=== PATIENT | female | born 1995 | race Caucasian/White ===

== ENCOUNTER → 2024-03-15 06:17 | Day surgery (SDC) | payer BC, SELFPAY | LOC: GI 06:17 | PROVIDERS: ATTENDING PHYSICIAN Internal Medicine Gastroenterology; FAMILY PHYSICIAN Internal Medicine | DX: R19.4 Change in bowel habit (principal); K64.8 Other hemorrhoids; R10.13 Epigastric pain; K31.89 Other diseases of stomach and duodenum; K31.7 Polyp of stomach and duodenum; K22.89 Other specified disease of esophagus; K29.50 Unspecified chronic gastritis without bleeding | CPT/HCPCS: 45380; 43239; 88305; 87220; 88342 ==

== ENCOUNTER → 2024-03-29 08:36 | Outpatient (REF) | payer BC, SELFPAY | LOC: RAD 08:36 | PROVIDERS: ATTENDING PHYSICIAN Internal Medicine Gastroenterology; FAMILY PHYSICIAN Internal Medicine | DX: R19.8 Other specified symptoms and signs involving the digestive system and abdomen (principal) | CPT/HCPCS: 74246 ==